=== PATIENT | female | born 1955 | race Caucasian/White ===

== ENCOUNTER → 2016-09-27 | Outpatient (CLI) | payer MEDICARE | LOC: US 11:13 | DX: N64.1 Fat necrosis of breast (principal); N63 Unspecified lump in breast | CPT/HCPCS: 76641-LT ==

== ENCOUNTER → 2020-12-02 | Outpatient (CLI) | payer MEDICARE, OTHER ==
[~2020-12-02] MED LIST: ABILIFY10 MG PO; BUSPIRONE HCL15 MG PO; CARAFATE1 GM PO; DUREZOL5 ML EYEBOTH; EFFEXOR XR150 MG PO; ELAVIL 25 MG TA25 MG PO; K-DUR TAB 10 M10 MEQ PO; K-DUR TAB 20 M20 MEQ PO; LISINOPRIL-HCT1 EAC1 PO; PRAVASTATIN SOD10 MG PO; PROTONIX 40 MG40 M1 PO; SPIRIVA RESPIMAT4 GM INH
== END ==
LOC: KOH-I 11:01
DX: M54.2 Cervicalgia (principal); M47.812 Spondylosis without myelopathy or radiculopathy, cervical region
CPT/HCPCS: 72040

== ENCOUNTER 2020-12-21 16:50 | Emergency (ER) | payer MEDICARE, OTHER | END 2020-12-21 19:45 | disposition home or self-care (01) | LOC: ER1 16:50 | DX: R05 Cough (principal); J02.9 Acute pharyngitis, unspecified; I10 Essential (primary) hypertension; J44.9 Chronic obstructive pulmonary disease, unspecified; E03.9 Hypothyroidism, unspecified; F17.210 Nicotine dependence, cigarettes, uncomplicated | CPT/HCPCS: 99283 ==

== ENCOUNTER → 2021-02-19 | Outpatient (CLI) | payer MEDICARE, OTHER ==
[~2021-02-19] MED LIST changes: +HYDROCODON-ACE1 EAC4 PO; +PRAVASTATIN SOD20 MG PO; +REQUIP0.25 MG PO; +VENTOLIN HFA 66.7 GM INH
== END ==
LOC: KOH-I 08:15
DX: M25.552 Pain in left hip (principal); M54.32 Sciatica, left side; M51.34 Other intervertebral disc degeneration, thoracic region; G95.89 Other specified diseases of spinal cord
CPT/HCPCS: 72100; 73502

== ENCOUNTER → 2021-02-27 | Outpatient (CLI) | payer MEDICARE, OTHER ==
[2021-02-27 08:57] LABS: HEMOGLOBIN 13.6 gm/dl (12.3-15.3); RED BLOOD COUNT 4.23 M/UL (4.00-5.10); WHITE BLOOD COUNT 8.5 K/UL (4.5-11.0)
[2021-02-27 09:56] LABS: BUN/CREATININE RATIO 19 (0-10)
== END ==
LOC: OPSV2 07:52
PROVIDERS: Orthopaedic Surgery
DX: Z01.818 Encounter for other preprocedural examination (principal); G56.02 Carpal tunnel syndrome, left upper limb; R94.31 Abnormal electrocardiogram [ECG] [EKG]
CPT/HCPCS: 36415; 80048; 85027; 93005

== ENCOUNTER → 2021-03-04 | Day surgery (SDC) | payer MEDICARE, OTHER ==
[2021-03-04 06:59] LABS: BUN/CREATININE RATIO 17 (0-10)
== END | disposition home or self-care (01) ==
LOC: OR 05:50
PROVIDERS: Orthopaedic Surgery
DX: G56.02 Carpal tunnel syndrome, left upper limb (principal); G56.22 Lesion of ulnar nerve, left upper limb; I10 Essential (primary) hypertension; E78.5 Hyperlipidemia, unspecified; J44.9 Chronic obstructive pulmonary disease, unspecified; K58.9 Irritable bowel syndrome, unspecified; F32.9 Major depressive disorder, single episode, unspecified; F41.0 Panic disorder [episodic paroxysmal anxiety]; M19.90 Unspecified osteoarthritis, unspecified site; F17.210 Nicotine dependence, cigarettes, uncomplicated; Z79.899 Other long term (current) drug therapy
CPT/HCPCS: 80048; J0690; J1100; J1885; J2001; J2250; J2405; J2704; J3010; J7120

== ENCOUNTER → 2021-11-24 | Outpatient (CLI) | payer MEDICARE, OTHER | LOC: KOH-I 13:12 | DX: I99.9 Unspecified disorder of circulatory system (principal) | CPT/HCPCS: 93925 ==